=== PATIENT | male | born 1940 | race Caucasian/White ===

== ENCOUNTER 2019-07-08 09:41 | Emergency (ER) | payer OTHER ==
[~2019-07-08] VITALS: Ht 170.2 cm; Wt 74.4 kg
[2019-07-08] MEDS ORDERED: DOXA4 PO (10:05)
[2019-07-08] MEDS ORDERED: HYDR1TAB94 (10:05)
[2019-07-08] MEDS ORDERED: PREG100 (10:05)
[2019-07-08] MEDS ORDERED: Percocet 5-3251 EACH PO (11:13)
[2019-07-08] MEDS ORDERED: CYCL10 PO (11:13)
== END 2019-07-08 11:22 | disposition home or self-care (01) ==
LOC: ER 09:41
DX: S76.212A Strain of adductor muscle, fascia and tendon of left thigh, initial encounter (principal); Z86.73 Personal history of transient ischemic attack (TIA), and cerebral infarction without residual deficits; Z91.013 Allergy to seafood; Z91.012 Allergy to eggs; Z79.899 Other long term (current) drug therapy; X58.XXXA Exposure to other specified factors, initial encounter
CPT/HCPCS: 73502; 73562-RT; 99283-25